=== PATIENT | male | born 1945 | race Caucasian/White ===

== ENCOUNTER 2023-09-20 16:34 | Emergency (ER) | payer MEDICARE ==
[~2023-09-20] VITALS: Ht 167.6 cm; Wt 67.3 kg
[~2023-09-20 16:34] MED LIST: ALPR-623 PO; AMLO1TAB12 PO; ASPI-1265 PO; COR3.125T PO; HYDR1TAB10 PO; TIOT18CA7 IH
[2023-09-20 16:43] VITALS: TEMP 98.3
[2023-09-20] MEDS ORDERED: ESOM40CA54 PO (16:48)
[2023-09-20] MEDS ORDERED: UMEC1DIS INH (16:48)
[2023-09-20] MEDS ORDERED: CARV6.253 PO (16:48)
[2023-09-20 17:15] LABS: BASOPHILS % (AUTO) 0.4 % (0-1); EOSINOPHILS # (AUTO) 0.1 X10'3 (0-0.9); EOSINOPHILS % (AUTO) 1.5 % (0-6); HEMATOCRIT 43.1 % (42.0-52.0); HEMOGLOBIN 14.4 g/dl (14.0-17.9); LYMPHOCYTES % (AUTO) 10.3 % (21-51); MEAN CORPUSCULAR HEMOGLOBIN 31.7 PG (27.0-31.0); MEAN CORPUSCULAR HGB CONC 33.4 g/dL (33.0-36.5); MEAN CORPUSCULAR VOLUME 94.9 FL (78-98); MEAN PLATELET VOLUME 8.3 FL (7.4-10.4); MONOCYTES # (AUTO) 1.1 X10'3 (0-0.9); MONOCYTES % (AUTO) 11.4 % (2-12); NEUTROPHILS # (AUTO) 7.2 X10'3 (1.8-7.7); NEUTROPHILS % (AUTO) 76.4 % (42-75); PLATELET COUNT 262 X10'3 (140-440); RED BLOOD COUNT 4.54 X10'6 (4.70-6.10); RED CELL DISTRIBUTION WIDTH 13.2 % (11.5-14.5); WHITE BLOOD COUNT 9.4 X10'3 (4.5-11.0)
[2023-09-20 17:34] LABS: ALANINE AMINOTRANSFERASE 24 U/L (12-78); ALBUMIN 3.7 G/DL (3.4-5.0); ALBUMIN/GLOBULIN RATIO 1.1 (1.1-1.5); ALKALINE PHOSPHATASE 78 IU/L (46-116); ANION GAP 8 (8-16); ASPARTATE AMINO TRANSFERASE 13 U/L (10-37); BILIRUBIN,TOTAL 0.6 MG/DL (0.1-1.0); BLOOD UREA NITROGEN 18 MG/DL (7-18); BUN/CREATININE RATIO 18.4 (10.0-20.0); CHLORIDE 101 MMOL/L (99-107); CREATININE 0.98 MG/DL (0.60-1.10); GLUCOSE 89 MG/DL (70-104); POTASSIUM 3.7 MMOL/L (3.5-5.1); SODIUM 137 MMOL/L (135-145); TOTAL CARBON DIOXIDE 28.1 MMOL/L (24-32); TOTAL PROTEIN 7.2 G/DL (6.4-8.2); eCRCL 59 ML/MIN; eGFR 75 ML/MIN
[2023-09-20 17:40] LABS: PRO BRAIN NATRIURETIC PEPTIDE 310 PG/ML (0-450)
[2023-09-20 19:47] LABS: BILIRUBIN,URINE NEGATIVE (Neg); CLARITY,URINE CLEAR (Clear); COLOR,URINE YELLOW (Yellow); GLUCOSE, URINE NEGATIVE (Neg); KETONES,URINE 15 mg/dl (Neg); LEUKOCYTE ESTERASE ,URINE NEGATIVE (Neg); NITRITES, URINE NEGATIVE (Neg); OCCULT BLOOD,URINE NEGATIVE (Neg); PH,URINE 6.5 (4.8-8.0); PROTEIN,URINE NEGATIVE (Neg); UROBILINOGEN,URINE 0.2 E.U/dL (0.2-1.0)
[2023-09-20 19:57] LABS: UA COLLECTION TYPE CLN CATCH MIDSTREAM
[2023-09-20] MEDS: ondansetron/PF 4mg/2ml inj IV ONE (20:33)
[2023-09-20] MEDS: morphine 2 MG/ML inj. syringe IV ONE (20:34)
[2023-09-20] MEDS: normal saline 500ml IV soln 500 ML IV SCH (20:37)
[2023-09-20] MEDS ORDERED: CEPH-585 PO (22:49)
[2023-09-20 23:00] VITALS: BP 141/80; PULSE 86; RESP 16; O2SAT 96
== END 2023-09-20 22:59 | disposition home or self-care (01) ==
LOC: ER 16:34
DX: R00.2 Palpitations (principal); R07.89 Other chest pain; R35.0 Frequency of micturition; M54.9 Dorsalgia, unspecified; K21.9 Gastro-esophageal reflux disease without esophagitis; Z88.0 Allergy status to penicillin; Z88.6 Allergy status to analgesic agent; Z79.899 Other long term (current) drug therapy
CPT/HCPCS: 36415; 71045; 74176; 80053; 81003; 83880; 84484; 85025; 93005; 96374; 96375; 99285; J2270; J2405; J7030; J7040